=== PATIENT | male | born 1980 | race Caucasian/White ===

== ENCOUNTER 2024-01-14 16:48 | Inpatient (IN) | payer BC ==
[~2024-01-14] VITALS: Ht 185.4 cm; Wt 102.5 kg
[2024-01-14 18:07] LABS: BASOPHILS ABSOLUTE AUTO 0.04 K/mm3 (0.00-0.23); BASOPHILS PERCENT AUTO 0 % (0-2); EOSINOPHILS ABSOLUTE AUTO 0.24 K/mm3 (0.00-0.68); EOSINOPHILS PERCENT AUTO 3 % (0-6); Hematocrit 46.5 % (37.0-53.0); Hemoglobin 16.5 g/dL (13.5-17.5); IMMATURE GRAN ABSOLUTE AUTO 0.06 K/mm3 (0.00-0.10); IMMATURE GRAN PERCENT AUTO 1 % (0-1); LYMPHOCYTES PERCENT AUTO 43 % (21-46); MONOCYTES ABSOLUTE AUTO 0.68 K/mm3 (0.16-1.47); MONOCYTES PERCENT AUTO 8 % (4-13); Mean Corpuscular HGB Conc 35.5 g/dL (31.5-36.5); Mean Corpuscular Volume 85 fL (80-100); Mean Platelet Volume 10.1 fL (9.1-12.4); NEUTROPHILS ABSOLUTE AUTO 4.13 K/mm3 (1.96-9.15); NEUTROPHILS PERCENT AUTO 46 % (41-73); Platelet Count 204 K/mm3 (150-400); RDW Coefficient Variation 12.4 % (11.7-14.2); RDW Standard Deviation 37.7 fL (35.1-46.3); White Blood Cell Count 9.05 K/mm3 (4.00-11.30)
[2024-01-14 18:16] LABS: Albumin, Blood 3.9 g/dL (3.4-5.0); Albumin/Globulin Ratio 1.1 (0.8-1.8); Bilirubin, Total 0.6 mg/dL (0.1-1.0); Bun/Creatinine Ratio 17.5 (12.0-20.0); Calcium, Blood 8.3 mg/dL (8.5-10.1); Creatinine, Blood 1.03 mg/dL (0.60-1.20); Globulin, Blood 3.6 g/dL (2.2-4.0); Potassium, Blood 3.6 mmol/L (3.5-5.5); Total Protein, Blood 7.5 g/dL (6.4-8.2)
[2024-01-14 20:10] LABS: D-Dimer, Quantitative <0.19 mg/L FEU (0.00-0.52)
[2024-01-14] MEDS ORDERED: Aspirin 325 MG Tab PO ONE (20:40)
[2024-01-14] MEDS ORDERED: Dose Adjust by Pharmacy XX STA (21:06)
[2024-01-14] MEDS ORDERED: Heparin Sodium 5000 Units/ML 1ML MDV IV ONE (21:10)
[2024-01-14] MEDS ORDERED: Heparin Sodium,Porcine/0.5 NS 500 ML IV SCH (21:10)
[2024-01-14 21:33] LABS: Anti-Xa UFH, PHA Monitoring <0.10 IU/mL; International Normalized Ratio 0.97; Prothrombin Time Results 10.4 Sec (9.7-11.5)
[2024-01-14] MEDS ORDERED: Labetalol HCL 5 MG/ML 4ML Injection (Single Dose) IV PRN (21:45)
[2024-01-14] MEDS ORDERED: Ondansetron HCl 2 MG / ML 2ML Vial IV PRN (21:45)
[2024-01-14] MEDS ORDERED: FLU VACC TS2024-25(6MOS UP)/PF 45 MCG/0.5 ML SYRINGE IM SCH (21:50)
[2024-01-14] MEDS ORDERED: LORazepam 1 MG Tab PO PRN (21:50)
[2024-01-14] MEDS ORDERED: LORazepam 1 MG Tab PO ONE (22:00)
[2024-01-14] MEDS ORDERED: Atorvastatin 40 MG Tab PO SCH (22:00)
[2024-01-14] MEDS ORDERED: Metoprolol Tartrate 25 MG Tab PO SCH (22:00)
[2024-01-14] MEDS ORDERED: NS 1,000 ML IV SCH (23:30)
[2024-01-15] VITALS (11 sets, daily range): BP systolic 112–134; BP diastolic 77–89
[2024-01-15 00:09] LABS: Magnesium, Blood 1.8 mg/dL (1.6-2.4); Thyroid Stimulating Hormone 2.75 uIU/mL (0.360-4.800)
[2024-01-15 04:52] LABS: Hemoglobin 14.9 g/dL (13.5-17.5); Mean Corpuscular HGB 29.3 pg (26.0-34.0); Mean Corpuscular HGB Conc 35.5 g/dL (31.5-36.5); Mean Corpuscular Volume 83 fL (80-100); Platelet Count 202 K/mm3 (150-400); RDW Coefficient Variation 12.3 % (11.7-14.2); RDW Standard Deviation 37.2 fL (35.1-46.3); Red Blood Cell Count 5.09 M/mm3 (4.30-5.90); White Blood Cell Count 8.76 K/mm3 (4.00-11.30)
[2024-01-15 05:39] LABS: Anion Gap 8 mmol/L (3-11); Blood Urea Nitrogen 15 mg/dL (8-24); CO2, Blood 26 mmol/L (21-32); Calcium, Blood 8.5 mg/dL (8.5-10.1); Chloride, Blood 113 mmol/L (98-108); Cholesterol 171 mg/dL (50-200); Creatinine, Blood 0.94 mg/dL (0.60-1.20); Glomerular Filtration Rate 102 (60-); Glucose, Blood 105 mg/dL (70-99); HDL Cholesterol 43 mg/dL (>39); LDL/HDL RATIO 2.1; Low Density Lipoprotein Chol 90 mg/dL (0-110); Magnesium, Blood 2.1 mg/dL (1.6-2.4); Potassium, Blood 4.8 mmol/L (3.5-5.5); Sodium, Blood 142 mmol/L (136-145); Triglycerides 189 mg/dL (30-160); Very Low Density Lipoprot Chol 37 mg/dL (6-32)
[2024-01-15] MEDS ORDERED: Clarify Drug Order XX ONE (06:00)
[2024-01-15] MEDS ORDERED: Metoprolol Succinate 50 MG TABCR PO SCH (09:00)
[2024-01-15] MEDS ORDERED: Aspirin 81 MG Chew PO SCH (09:00)
[2024-01-15] MEDS ORDERED: Nitroglycerin 1 INCH/GM PKT TOP SCH (09:00)
[2024-01-15] MEDS ORDERED: AmLODIPine Besylate 5 MG Tab PO SCH (09:00)
[2024-01-15] MEDS ORDERED: NS 250 ML IV ONE (09:52)
[2024-01-15] MEDS ORDERED: NS 1,000 ML IV ONE (09:52)
[2024-01-15] MEDS ORDERED: NiCARdipine HCL 1,000 MCG/5 ML SYR ONE (09:52)
[2024-01-15] MEDS ORDERED: Nitroglycerin 2 MG/20 ML BTL ONE (09:52)
[2024-01-15] MEDS ORDERED: Heparin Sodium 1000 Units/ML 10ML MDV ONE ×2 (09:53→11:00)
[2024-01-15] MEDS ORDERED: NS 500 ML IV ONE (10:25)
[2024-01-15] MEDS ORDERED: Midazolam HCl 1MG / ML 2ML Vial ONE ×2 (10:25→10:54)
[2024-01-15] MEDS ORDERED: FentaNYL Citrate 50 MCG/ML 2 ML Injection ONE (10:25)
[2024-01-15] MEDS ORDERED: Dose Adjust by Pharmacy XX STA (10:51)
[2024-01-15] MEDS ORDERED: NS 1,000 ML IV SCH (11:35)
--- NOTE | 2024-01-15 11:52 | NUR ---
PATIENT ARRIVED TO ROOM FROM FRONT SERVICES AGENT. A/O X4. SPOUSE IN ROOM FABIO.
[2024-01-15] MEDS ORDERED: Cialis20 MG PO (13:00)
[2024-01-15] MEDS ORDERED: SKYRIZI150 MG/1 M SC (13:00)
[2024-01-15] MEDS ORDERED: Acetaminophen 325 MG TABLET PO PRN (13:25)
--- NOTE | 2024-01-15 14:14 | NUR ---
PHYSICIAN CONTACT. CHARGE CALLED DR MANDUJANO REGARDING NITROPASTE Q6, OKAYED TO DC. PATIENT NO C/O CHEST PAIN, BP WITHIN OKAY RANGE. GIVEN APAP FOR WRIST PAIN 08/05.
--- NOTE | 2024-01-15 16:38 | NUR ---
TR BAND 1130- BAND IN PLACE ON ADMIT, SKIN WHITE UNDERNEATH, NO SIGNS OF BLEEDING 1230- BAND IN PLACE, NO AIR REMOVAL, SKIN WHITE UNDERNEATH, NO SIGNS OF BLEEDING 1350- 3ML AIR REMOVED, SKIN WHITE UNDERNEATH, NO SIGNS OF BLEEDING, C/O /10 PAIN 1417-2ML AIR REMOVED, SKIN WHITE UNDERNEATH, NO SIGNS OF BLEEDING 1437- 2ML AIR REMOVED, SKIN PINK UNDERNEATH, NO SIGNS OF BLEEDING C/O 10 PAIN 1457- 3ML AIR REMOVED, SKIN PINK UNDERNEATH, NO SIGNS OF BLEEDING 1520-1 ML AIR REMOVED FOR TOTAL OF 11ML. SKIN PINK UNDERNEATH, VERY SCANT BLOOD AROUND SQUARE EDGES 1630- BAND REMOVED, SCANT BLOOD AROUND SQUARE, SITE CLEANSED WITH GAUZE PAD, NO FURTHER BLEEDING, TEGADERM PLACED.
--- NOTE | 2024-01-15 17:08 | NUR ---
SHIFT SUMMARY PATIENT ARRIVED ABOUT 1130 FROM DYE HOUSE WHEEL OPERATOR. TR BAND IN PLACE TO RIGHT WRIST, WAS DISCONTINUED 1630, APPARENT HEMOSTASIS ACHIEVED, SMALL PINPOINT BLOOD SPECK VISIBLE UNDER TEGADERM, SURROUNDING SKIN NORMAL COLORATION. ABLE TO AMBULATE TO BATHROOM WITH SBA, VOIDING WELL. NO DIZZINESS OR C/O CHEST PAIN. NITRO PAPER TO MIDLINE CHEST WAS REMOVED ABOUT 1400. VS REMAIN WNL. ABLE TO MAKE NEEDS KNOWN, SPOUSE IN ROOM WITH PATIENT. CALL LIGHT IN REACH, CARES ONGOING.
[2024-01-15] MEDS ORDERED: Atorvastatin 40 MG Tab PO SCH (21:00)
[2024-01-16] VITALS: BP 140/88
[2024-01-16 04:00] VITALS: BP 112/67
[2024-01-16 04:55] LABS: BASOPHILS ABSOLUTE AUTO 0.05 K/mm3 (0.00-0.23); BASOPHILS PERCENT AUTO 1 % (0-2); EOSINOPHILS ABSOLUTE AUTO 0.16 K/mm3 (0.00-0.68); EOSINOPHILS PERCENT AUTO 2 % (0-6); Hematocrit 44.9 % (37.0-53.0); Hemoglobin 15.1 g/dL (13.5-17.5); IMMATURE GRAN ABSOLUTE AUTO 0.04 K/mm3 (0.00-0.10); IMMATURE GRAN PERCENT AUTO 1 % (0-1); LYMPHOCYTES ABSOLUTE AUTO 2.14 K/mm3 (0.84-5.20); LYMPHOCYTES PERCENT AUTO 25 % (21-46); MONOCYTES ABSOLUTE AUTO 0.72 K/mm3 (0.16-1.47); MONOCYTES PERCENT AUTO 9 % (4-13); Mean Corpuscular HGB 29.7 pg (26.0-34.0); Mean Corpuscular HGB Conc 33.6 g/dL (31.5-36.5); Mean Platelet Volume 11.4 fL (9.1-12.4); NEUTROPHILS ABSOLUTE AUTO 5.34 K/mm3 (1.96-9.15); NEUTROPHILS PERCENT AUTO 63 % (41-73); Platelet Count 175 K/mm3 (150-400); RDW Coefficient Variation 12.5 % (11.7-14.2); RDW Standard Deviation 40.7 fL (35.1-46.3); Red Blood Cell Count 5.09 M/mm3 (4.30-5.90); White Blood Cell Count 8.45 K/mm3 (4.00-11.30)
--- NOTE | 2024-01-16 05:25 | NUR ---
SHIFT SUMMERY PT IS ALERT AND ORIENTED X4. HE HAS HAD NO CHEST PAIN/PRESSURE OVERNIGHT. RIGHT RADIAL ACCESS SITE IS WNL, PULSE WNL. PT IS AMBULATORY TO RESTROOM. HAS STAYED AT BEDSIDE. HE HAS BEEN SB-SR ON THE MECHANICAL ENERGY ENGINEER W/BP WNL. OXYGEN SAT >95% ON ROOM AIR. AFEBRILE.
[2024-01-16 05:38] LABS: Mean Corpuscular Volume 88 fL (80-100)
[2024-01-16 07:24] LABS: Calcium, Blood 9.1 mg/dL (8.5-10.1); Creatinine, Blood 0.88 mg/dL (0.60-1.20); Potassium, Blood 4.3 mmol/L (3.5-5.5)
[2024-01-16 08:17] VITALS: BP 140/88
[2024-01-16] MEDS ORDERED: Metoprolol Succinate 25 MG TABCR PO SCH (09:00)
[2024-01-16] MEDS ORDERED: Clopidogrel Bisulfate 75 MG Tab PO SCH (09:00)
[2024-01-16] MEDS ORDERED: AMLO5 PO (09:49)
[2024-01-16] MEDS ORDERED: ASPI81CH PO (09:50)
[2024-01-16] MEDS ORDERED: ATOR40TA PO (09:51)
[2024-01-16] MEDS ORDERED: CLOP75 PO (09:51)
[2024-01-16] MEDS ORDERED: METO25ER PO (09:52)
--- NOTE | 2024-01-16 10:15 | NUR ---
DISCHARGE: PT D/C PCU 13 @1011. DISCHARGE INSTRUCTIONS AND EDUCATION PROVIDED. ALL BELONGINGS WITH PT.
[2024-01-16] MEDS ORDERED: Atorvastatin 40 MG Tab PO SCH (21:00)
== END 2024-01-16 10:17 | disposition home or self-care (01) | DRG 282 ==
LOC: ER 16:48 → PCU 20:44 → ERHOLD 20:44 → EDBEDREQ 22:14 → PCU 01-15 11:43
PROVIDERS: Nurse Practitioner Acute Care; Student in an Organized Health Care Education/Training Program; ADMIT Internal Medicine
PROC: B2111ZZ Fluoroscopy of Multiple Coronary Arteries using Low Osmolar Contrast (ICD-10-PCS; principal; 2024-01-15)
PROC: 4A023N7 Measurement of Cardiac Sampling and Pressure, Left Heart, Percutaneous Approach (ICD-10-PCS; 2024-01-15)
DX: I16.0 Hypertensive urgency (principal); I21.A1 Myocardial infarction type 2; I10 Essential (primary) hypertension; E78.5 Hyperlipidemia, unspecified; I25.119 Atherosclerotic heart disease of native coronary artery with unspecified angina pectoris; E87.8 Other disorders of electrolyte and fluid balance, not elsewhere classified; E83.52 Hypercalcemia; E66.9 Obesity, unspecified; E88.810 Metabolic syndrome; Z86.718 Personal history of other venous thrombosis and embolism; Z98.890 Other specified postprocedural states; Z88.8 Allergy status to other drugs, medicaments and biological substances; Z79.82 Long term (current) use of aspirin; Z79.899 Other long term (current) drug therapy; F41.9 Anxiety disorder, unspecified; R00.1 Bradycardia, unspecified; Z68.30 Body mass index [BMI] 30.0-30.9, adult; R74.01 Elevation of levels of liver transaminase levels
CPT/HCPCS: 36415; 36416; 71045; 76937; 80048; 80053; 80061; 83036; 83735; 84443; 84484; 85025; 85027; 85347; 85379; 85520; 85610; 85730; 93005; 93010; 93306; 93458; 93571; 99152; 99153; 99285-25; A9270; C1769; C1887; C1894; J1644; J2250; J3010; J7030; J7040; J7050; Q9967